=== PATIENT | female | born 1990 ===

== ENCOUNTER 2017-02-23 13:04 | Emergency (ER) | payer OTHER, MEDICAID ==
[2017-02-23 13:05] VITALS: BMI 25.2
[2017-02-23 13:17] VITALS: O2SAT 98
[2017-02-23 13:58] LABS: BASO % 0.6 % (0.0-2.0); EOS % 0.7 % (0.0-4.0); HEMATOCRIT 39.3 % (34.0-47.0); LYMPH # 1.8 K/uL (1.0-4.3); LYMPH % 33.6 % (20.0-40.0); MEAN CELL VOLUME 87.6 fL (81.0-99.0); MEAN CORPUSCULAR HEMOGLOBIN 28.4 pg (27.0-31.0); MEAN CORPUSCULAR HGB CONC 32.5 g/dL (33.0-37.0); MEAN PLATELET VOLUME 9.3 fL (7.2-11.7); MONO # 0.5 K/uL (0.0-0.8); MONO % 9.4 % (0.0-10.0); NRBC % 0.2 % (0.0-2.0); RED CELL DISTRIBUTION WIDTH 13.5 % (11.5-14.5); WHITE BLOOD COUNT 5.2 K/uL (4.8-10.8)
--- NOTE | 2017-02-23 14:08 | C.PDOC ---
History Of Present Illness 27 y/o female presents to ED with complaints of abdominal pain for 3 days. Patient states she had a tubal and was given Methotrexate on 01/31. Patient started having vaginal bleeding 1 week ago and was told she was having a miscarriage, 5 days ago Beta was checked and was 1000. Patient states currently she is having vaginal spotting and nausea but denies vomiting, back pain, dizziness or any other complaints at this time. LMP 12/17/16 Time Seen by Provider: 02/23/17 13:26 Chief Complaint (Nursing): Abdominal Pain History Per: Patient History/Exam Limitations: no limitations Onset/Duration Of Symptoms: Days Current Symptoms Are (Timing): Still Present Location Of Pain/Discomfort: Suprapubic Radiation Of Pain To:: None Quality Of Discomfort: Dull Associated Symptoms: Nausea. denies: Vomiting Past Medical History Reviewed: Historical Data, Nursing Documentation, Vital Signs Vital Signs: Last Vital Signs Temp 89.6 F L 02/23/17 15:47 Pulse 78 02/23/17 15:47 Resp 16 02/23/17 15:47 BP 124/71 02/23/17 15:47 Pulse Ox 98 02/23/17 15:47 - Medical History PMH: No Chronic Diseases Surgical History: No Surg Hx - [facility] Procedures INJECT/INFUSE ELECTROLYT (12/26/13) INJECT/INFUSE NEC (12/26/13) Family History: States: No Known Family Hx - Social History Hx Tobacco Use: Yes (socially) Hx Alcohol Use: Yes Hx Substance Use: No - Immunization History Hx Tetanus Toxoid Vaccination: No Hx Influenza Vaccination: Yes Hx Pneumococcal Vaccination: No Review Of Systems Constitutional: Negative for: Fever, Chills Gastrointestinal: Positive for: Nausea, Abdominal Pain. Negative for: Vomiting , Diarrhea Genitourinary: Positive for: Vaginal Bleeding. Negative for: Dysuria Musculoskeletal: Negative for: Back Pain Skin: Negative for: Rash Neurological: Negative for: Weakness, Numbness Physical Exam - Physical Exam Appears: Non-toxic, No Acute Distress Skin: Warm, Dry, No Rash Head: Atraumatic, Normacephalic Oral Mucosa: Moist Neck: Normal ROM, Supple Chest: Symmetrical Cardiovascular: Rhythm Regular Respiratory: Normal Breath Sounds, No Accessory Muscle Use, No Rales, No Rhonchi , No Wheezing Gastrointestinal/Abdominal: Soft, Tenderness (right side suprapubic), No Guarding, No Rebound Back: No CVA Tenderness Extremity: Bilateral: Atraumatic Neurological/Psych: Oriented x3, Normal Motor, Normal Sensation ED Course And Treatment - Laboratory Results Result Diagrams: 02/23/17 13:52 02/23/17 13:52 O2 Sat by Pulse Oximetry: 98 (RA) Pulse Ox Interpretation: Normal - CT Scan/US Pelvis/ Transvaginal Other Rad Studies (CT/US): Interpreted By Me, Read By Radiologist CT/US Interpretation: HISTORY: prior ectopic preg, c.o pain and bleeding. COMPARISON: None available. TECHNIQUE: Transabdominal and transvaginal technique was utilized in providing longitudinal and transverse projections of the pelvic contents. FINDINGS: UTERUS: Measures 9.4 x 5.7 x 6.4 cm. Uterus is mildly enlarged appearing anteverted with inhomogeneous myometrial echotexture. At the high fundus anteriorly, there is a 2.1 x 2.2 x 2.3 cm sub serosal myoma inhomogeneous in echotexture with limited posterior shadowing associated. At the mid anterior fundus there is a 2.4 x 2.4 x 2.4 cm mixed echogenicity lesion representing a intramural myoma which appears sub serosal and intramural without encroachment of the submucus space. At the high posterior fundus toward the right, the largest myoma is identified measuring 3.1 x 2.8 x 3.5 cm with relatively prominent posterior shadowing and occasional posterior acoustic enhancement bridging the submucous through sub serosal distance. Finally, a hypoechoic sub serosal myoma is identified at the mid to lower fundus measuring 2.1 x 1.8 x 2.5 cm. ENDOMETRIUM: Measures 4.4 mm in diameter. Monolaminar and otherwise appearing unremarkable. CERVIX: No cervical abnormality identified. RIGHT OVARY: Measures 3.0 x 2.0 x 2.7 cm. A complex lesion measuring 2.5 x 2.3 x 2.0 cm is isoechoic in the periphery with a small cystic core measuring 8.3 mm. No yolk sac or pole seen within this structure but this may correspond to the clinically known right ectopic gestation for which the patient was given methotrexate in the past week. No prior comparison available. Normal intra-ovarian arterial blood flow was captured on spectral Doppler analysis. LEFT OVARY: Measures 3.2 x 2.2 x 2.5 cm. No solid mass. Normal flow. A few tiny cysts suggest scattered follicles in the left ovary. FREE FLUID: No significant free fluid noted. OTHER FINDINGS: None. IMPRESSION: At 2.5 cm complex solid and cystic lesion is seen at the superior margins of the right ovary suspicious for ectopic gestation with no similar finding seen at the left adnexal compartment. The intracavity is unremarkable as well. Further clinical correlation is advised. No sonographic evidence to suggest ovarian torsion bilaterally. Multiple uterine fibroids as discussed above. Endometrium is otherwise unremarkable as well the cervix. Medical Decision Making Medical Decision Making: Impression: Ectopic , given methotrexate x1 dose Plan: Beta HCG, UA, US Progress: 1500 US shows a2.5 cm complex solid and cystic lesion is seen at the superior margins of the right ovary suspicious for ectopic gestation with no similar finding seen at the left adnexal compartment. The intracavity is unremarkable as well. Further clinical correlation is advised. No sonographic evidence to suggest ovarian torsion bilaterally. Attempt to contact Dr Araseli Costa and [facility] [id number] Spoke with hypoid gear tester Dr Costa and discussed case. she is familiar with patient and reports she was seen for exctopic , initial BHCG ws 7200, given Methotrexate and BHCG has been trending down, her most recent was 1678 on 02/18 and H/H was . Today BHCG is 192 and she agrees patient stable and steady for discharge. She can follow up in office 02/25 for repeat BHCG. Disposition Counseled Patient/Family Regarding: Diagnosis, Need For Followup, Rx Given - Disposition Referrals: Araseli Costa MD [Non-Staff] - Disposition: HOME/ ROUTINE Disposition Time: 15:31 Condition: STABLE Additional Instructions: Please follow up with your hypoid gear tester on Sunday 02/25 for repeat BHCG Take Tylenol 500mg or Ibuprofen 600mg as needed for pain Instructions: Ectopic (ED) Forms: [facility] (Upper Sorbian), Work Excuse - POA Present On Arrival: None - Clinical Impression Clinical Impression: Status post ectopic - PA / ASSOCIATE BUYER / Resident Statement MD/DO has reviewed & agrees with the documentation as recorded. - Scribe Statement The provider has reviewed the documentation as recorded by the Marie Aceves All medical record entries made by the Scribe were at my direction and personally dictated by me. I have reviewed the chart and agree that the record accurately reflects my personal performance of the history, physical exam, medical decision making, and the department course for this patient. I have also personally directed, reviewed, and agree with the discharge instructions and disposition.
[2017-02-23 14:15] LABS: RBC URINE 25 /hpf (0-3); URINE BILIRUBIN NEGATIVE (NEGATIVE); URINE BLOOD 3+ (NEGATIVE); URINE COLOR Yellow (YELLOW); URINE GLUCOSE (UA) NORMAL (Normal); URINE KETONE NEGATIVE (NEGATIVE); URINE LEUKOCYTE ESTERASE NEG Leu/uL (Negative); URINE PROTEIN NEGATIVE (NEGATIVE); URINE UROBILINOGEN NORMAL mg/dL (0.2-1.0); WBC URINE 3 /hpf (0-5)
[2017-02-23 14:16] LABS: CHLORIDE 104 mmol/L (98-107); SODIUM 135 mmol/L (132-148)
[2017-02-23 14:17] LABS: POTASSIUM 3.9 mmol/L (3.6-5.2)
[2017-02-23 14:19] LABS: ALKALINE PHOSPHATASE 50 U/L (38-126); ALT/SGPT 78 U/L (9-52); AST/SGOT 37 U/L (14-36); BILIRUBIN,TOTAL 0.6 mg/dL (0.2-1.3); BLOOD UREA NITROGEN 14 mg/dL (7-17); CARBON DIOXIDE 23 mmol/L (22-30); GFR AFRICAN-AMERICAN > 60; GLUCOSE,RANDOM 79 mg/dL (65-105); TOTAL PROTEIN 8.2 g/dL (6.3-8.3)
[2017-02-23 14:20] LABS: CALCIUM 9.4 mg/dl (8.6-10.4)
--- NOTE | 2017-02-23 15:09 | US ---
HISTORY: prior ectopic preg, c.o pain and bleeding COMPARISON: None available. TECHNIQUE: Transabdominal and transvaginal technique was utilized in providing longitudinal and transverse projections of the pelvic contents. FINDINGS: UTERUS: Measures 9.4 x 5.7 x 6.4 cm. Uterus is mildly enlarged appearing anteverted with inhomogeneous myometrial echotexture. At the high fundus anteriorly, there is a 2.1 x 2.2 x 2.3 cm sub serosal myoma inhomogeneous in echotexture with limited posterior shadowing associated. At the mid anterior fundus there is a 2.4 x 2.4 x 2.4 cm mixed echogenicity lesion representing a intramural myoma which appears sub serosal and intramural without encroachment of the submucus space. At the high posterior fundus toward the right, the largest myoma is identified measuring 3.1 x 2.8 x 3.5 cm with relatively prominent posterior shadowing and occasional posterior acoustic enhancement bridging the submucous through sub serosal distance. Finally, a hypoechoic sub serosal myoma is identified at the mid to lower fundus measuring 2.1 x 1.8 x 2.5 cm. ENDOMETRIUM: Measures 4.4 mm in diameter. Monolaminar and otherwise appearing unremarkable. CERVIX: No cervical abnormality identified. RIGHT OVARY: Measures 3.0 x 2.0 x 2.7 cm. A complex lesion measuring 2.5 x 2.3 x 2.0 cm is isoechoic in the periphery with a small cystic core measuring 8.3 mm. No yolk sac or pole seen within this structure but this may correspond to the clinically known right ectopic gestation for which the patient was given methotrexate in the past week. No prior comparison available. Normal intra-ovarian arterial blood flow was captured on spectral Doppler analysis. LEFT OVARY: Measures 3.2 x 2.2 x 2.5 cm. No solid mass. Normal flow. A few tiny cysts suggest scattered follicles in the left ovary. FREE FLUID: No significant free fluid noted. OTHER FINDINGS: None. IMPRESSION: At 2.5 cm complex solid and cystic lesion is seen at the superior margins of the right ovary suspicious for ectopic gestation with no similar finding seen at the left adnexal compartment. The intracavity is unremarkable as well. Further clinical correlation is advised. No sonographic evidence to suggest ovarian torsion bilaterally. Multiple uterine fibroids as discussed above. Endometrium is otherwise unremarkable as well the cervix.
[2017-02-23 15:48] VITALS: BP 124/71; PULSE 78; RESP 16; TEMP 89.6
== END 2017-02-23 15:48 | disposition home or self-care (01) ==
LOC: C.ER 13:04
DX: O00.90 Unspecified ectopic pregnancy without intrauterine pregnancy (principal)
CPT/HCPCS: 76830; 76856; 80053; 81001; 84702; 84703; 85025; 96374; 99284; J2405

== ENCOUNTER 2017-04-16 16:28 | Emergency (ER) | payer OTHER, MEDICAID ==
[2017-04-16 16:29] VITALS: BMI 25.2
[2017-04-16 16:53] VITALS: BP 121/76; PULSE 70; RESP 18; TEMP 97.8; O2SAT 100
[2017-04-16] MEDS ORDERED: Tetanus/Diphtheria Toxoids 0.5 ml Syringe IM ONE ×2 (17:13→19:25)
[2017-04-16] MEDS ORDERED: Emtricitabine-Tenofovir 200 mg-300 mg Tab PO STA ×2 (17:13→19:33)
[2017-04-16 17:45] LABS: BASO % 0.5 % (0.0-2.0); EOS % 0.5 % (0.0-4.0); HEMATOCRIT 37.4 % (34.0-47.0); LYMPH # 2.2 K/uL (1.0-4.3); LYMPH % 33.8 % (20.0-40.0); MEAN CELL VOLUME 87.1 fL (81.0-99.0); MEAN CORPUSCULAR HEMOGLOBIN 29.1 pg (27.0-31.0); MEAN CORPUSCULAR HGB CONC 33.4 g/dL (33.0-37.0); MEAN PLATELET VOLUME 9.5 fL (7.2-11.7); MONO # 0.7 K/uL (0.0-0.8); MONO % 10.2 % (0.0-10.0); NRBC % 0.1 % (0.0-2.0); RED CELL DISTRIBUTION WIDTH 13.1 % (11.5-14.5); WHITE BLOOD COUNT 6.5 K/uL (4.8-10.8)
[2017-04-16 17:49] LABS: RBC URINE 2 /hpf (0-3); URINE BILIRUBIN NEGATIVE (NEGATIVE); URINE BLOOD NEGATIVE (NEGATIVE); URINE COLOR Yellow (YELLOW); URINE GLUCOSE (UA) NORMAL (Normal); URINE KETONE NEGATIVE (NEGATIVE); URINE LEUKOCYTE ESTERASE NEG Leu/uL (Negative); URINE PROTEIN NEGATIVE (NEGATIVE); URINE UROBILINOGEN NORMAL mg/dL (0.2-1.0); WBC URINE < 1 /hpf (0-5)
[2017-04-16 17:54] LABS: ALB/GLOB RATIO 1.2 (1.0-2.1); ALKALINE PHOSPHATASE 49 U/L (38-126); ALT/SGPT 31 U/L (9-52); AMYLASE 80 U/L (30-110); AST/SGOT 34 U/L (14-36); BILIRUBIN,TOTAL 0.5 mg/dL (0.2-1.3); BLOOD UREA NITROGEN 14 mg/dL (7-17); CARBON DIOXIDE 26 mmol/L (22-30); CHLORIDE 102 mmol/L (98-107); GFR AFRICAN-AMERICAN > 60; GLUCOSE,RANDOM 89 mg/dL (65-105); SODIUM 134 mmol/L (132-148); TOTAL PROTEIN 7.4 g/dL (6.3-8.3)
--- NOTE | 2017-04-16 19:06 | C.PDOC ---
History Of Present Illness Cristin Trent is a 27 year old female, with no past medical history, who presents to the emergency department complaining of needle stick while taking blood test from patient who is known to be HIV positive. Patient is an employee and states she was using a butterfly needle 20 g hollow needle. She rinsed with water right after the incident. No further medical complaints. PMD: None provided. Time Seen by Provider: 04/16/17 16:32 Chief Complaint (Nursing): Needle Stick History Per: Patient History/Exam Limitations: no limitations Onset/Duration Of Symptoms: Hrs Current Symptoms Are (Timing): Still Present Pain Scale Rating Of: 0 Past Medical History Reviewed: Historical Data, Nursing Documentation, Vital Signs Vital Signs: Last Vital Signs Temp 97.8 F 04/16/17 16:44 Pulse 70 04/16/17 16:44 Resp 18 04/16/17 16:44 BP 121/76 04/16/17 16:44 Pulse Ox 100 04/16/17 20:08 - Medical History PMH: No Chronic Diseases Denies: Depression Surgical History: No Surg Hx - [facility] Procedures INJECT/INFUSE ELECTROLYT (12/26/13) INJECT/INFUSE NEC (12/26/13) Family History: States: Unknown Family Hx - Social History Hx Tobacco Use: Yes (socially) Hx Alcohol Use: Yes Hx Substance Use: No - Immunization History Hx Tetanus Toxoid Vaccination: No Hx Influenza Vaccination: Yes Hx Pneumococcal Vaccination: No Review Of Systems Except As Marked, All Systems Reviewed And Found Negative. Skin: Positive for: Other (marked needle stick on right index finger) Physical Exam - Physical Exam Appears: Well, No Acute Distress Skin: Normal Color, Warm, Dry Head: Atraumatic, Normacephalic Eye(s): bilateral: Normal Inspection, EOMI Neck: Normal, Normal ROM, Supple Extremity: Other (marked needle stick on the right index finger proximal phalanx palmar surface, no active bleeding) Neurological/Psych: Oriented x3, Normal Speech ED Course And Treatment - Laboratory Results Result Diagrams: 04/16/17 17:37 04/16/17 17:37 O2 Sat by Pulse Oximetry: 100 (RA) Pulse Ox Interpretation: Normal Medical Decision Making Medical Decision Making: Initial Impression: needle stick Initial Plan: --Amylase --Comp Metabolic Panel --Hepatitis B Surface AB --Hepatitis Panel (acute) --HIV 1&2 Antibody --CBC w/ differential --Tetanus 0.5 ml IM --Tivicay 50 mg PO --Truvuda 200 mg-300 mg 1 tab PO --Rapid Plasma Reagin --HCG, Qualitative urine --Urinalysis --reevaluation Disposition - Disposition Disposition: HOME/ ROUTINE Disposition Time: 20:07 Condition: STABLE Additional Instructions: Follow up in [facility] on 04/19[facility]17. Return to ED if feel worse. Prescriptions: Dolutegravir Sodium [Tivicay] 50 mg PO DAILY 3 Days #3 tab Dolutegravir Sodium [Tivicay] 50 mg PO DAILY 24 Days #24 tab Emtricitabine/Tenofovir (Tdf) [Truvada 200 mg-300 mg Tablet] 1 each PO DAILY 3 Days #3 tablet Emtricitabine/Tenofovir (Tdf) [Truvada 200 mg-300 mg Tablet] 1 each PO DAILY 24 Days #24 tablet Ondansetron ODT [Zofran ODT] 4 mg PO .Q4-6H PRN #20 odt PRN Reason: Nausea/Vomiting Instructions: Needle Stick Injuries (ED) Forms: [employer] (Mohawk) - Clinical Impression Clinical Impression: Needle stick injury - Scribe Statement Darrel Gardner All medical record entries made by the Scribe were at my direction and personally dictated by me. I have reviewed the chart and agree that the record accurately reflects my personal performance of the history, physical exam, medical decision making, and the department course for this patient. I have also personally directed, reviewed, and agree with the discharge instructions and disposition.
[2017-04-17] MEDS ORDERED: Emtricitabine-Tenofovir 200 mg-300 mg Tab PO SCH (10:00)
== END 2017-04-16 20:19 | disposition home or self-care (01) ==
LOC: C.ER 16:28
DX: S61.230A Puncture wound without foreign body of right index finger without damage to nail, initial encounter (principal); W46.0XXA Contact with hypodermic needle, initial encounter; Y92.238 Other place in hospital as the place of occurrence of the external cause; Y99.0 Civilian activity done for income or pay; Z23 Encounter for immunization

== ENCOUNTER 2017-06-03 14:16 | Emergency (ER) | payer MEDICAID, OTHER ==
[2017-06-03 15:07] VITALS: BMI 25.9
[2017-06-03 15:10] VITALS: BP 120/80; PULSE 65; RESP 18; TEMP 98; O2SAT 98
[2017-06-03 16:11] LABS: HEPATITIS B SURFACE AG Negative (NEGATIVE)
[2017-06-03 16:17] LABS: HEPATITIS A IGM NEGATIVE (NEGATIVE); HEPATITIS B CORE AB NEGATIVE (NEGATIVE)
[2017-06-03 16:28] LABS: HEPATITIS C ANTIBODY NEGATIVE (NEGATIVE)
--- NOTE | 2017-06-03 17:21 | C.PDOC ---
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 Patient was evaluated by the employee health department following the incident and was recommended to undergo repeat bloodwork. She denies any other complaints at this time. Time Seen by Provider: 06/03/17 15:15 Chief Complaint (Nursing): Medical Clearance History Per: Patient History/Exam Limitations: no limitations Current Symptoms Are (Timing): Still Present Additional History Per: Patient Past Medical History Reviewed: Historical Data, Nursing Documentation, Vital Signs Vital Signs: Last Vital Signs Temp 98 F 06/03/17 15:07 Pulse 65 06/03/17 15:07 Resp 18 06/03/17 15:07 BP 120/80 06/03/17 15:07 Pulse Ox 98 06/03/17 18:14 - Medical History PMH: No Chronic Diseases Denies: Depression Surgical History: No Surg Hx - [facility] Procedures INJECT/INFUSE ELECTROLYT (12/26/13) INJECT/INFUSE NEC (12/26/13) Family History: States: Unknown Family Hx - Social History Hx Tobacco Use: Yes (socially) Hx Alcohol Use: No Hx Substance Use: No - Immunization History Hx Tetanus Toxoid Vaccination: Yes Hx Influenza Vaccination: Yes Hx Pneumococcal Vaccination: No Review Of Systems Constitutional: Positive for: Other (repeat bloodwork s/p needle stick ). Negative for: Fever, Chills Cardiovascular: Negative for: Chest Pain Respiratory: Negative for: Cough, Shortness of Breath Gastrointestinal: Negative for: Nausea, Vomiting Skin: Negative for: Rash, Lesions, Jaundice, Bruising Neurological: Negative for: Weakness, Numbness Physical Exam - Physical Exam Appears: Non-toxic, No Acute Distress Skin: Normal Color, Warm, Dry Head: Atraumatic, Normacephalic Eye(s): bilateral: Normal Inspection Oral Mucosa: Moist Neck: Supple Chest: Symmetrical, No Deformity, No Tenderness Cardiovascular: Rhythm Regular, No Murmur Respiratory: Normal Breath Sounds, No Rales, No Rhonchi, No Wheezing Extremity: Normal ROM, Capillary Refill (less than 2 seconds) Neurological/Psych: Oriented x3, Normal Speech, Normal Cognition Gait: Steady ED Course And Treatment O2 Sat by Pulse Oximetry: 98 (on RA) Pulse Ox Interpretation: Normal Progress Note: Bloodwork ordered and reviewed. Pt advised to F/u with [facility] for further evaluation and treatment as need. Disposition Counseled Patient/Family Regarding: Studies Performed, Diagnosis - Disposition Disposition: HOME/ ROUTINE Disposition Time: 15:55 Condition: STABLE Additional Instructions: Follow up with Employee health for further evaluation and treatment return if any new changes. Instructions: Needle Stick Injuries (ED) Forms: [employer] (Kyrgyz) - Clinical Impression Clinical Impression: Medical assessment, Needle stick injury - PA / COIN BOX INSPECTOR / Resident Statement MD/DO has reviewed & agrees with the documentation as recorded. - Scribe Statement The provider has reviewed the documentation as recorded by the Scribe (Dayna Morales) All medical record entries made by the Scribe were at my direction and personally dictated by me. I have reviewed the chart and agree that the record accurately reflects my personal performance of the history, physical exam, medical decision making, and the department course for this patient. I have also personally directed, reviewed, and agree with the discharge instructions and disposition.
== END 2017-06-03 17:20 | disposition home or self-care (01) ==
LOC: C.ER 14:16
DX: T14.90XA Injury, unspecified, initial encounter (principal); W46.0XXA Contact with hypodermic needle, initial encounter; Y99.0 Civilian activity done for income or pay; Z87.891 Personal history of nicotine dependence

== ENCOUNTER 2017-06-06 22:31 | Emergency (ER) | payer OTHER ==
[2017-06-06 22:31] VITALS: BMI 25.9
[2017-06-06] MEDS ORDERED: Sodium Chloride 0.9% 1,000 ML IV ONE (22:58)
--- NOTE | 2017-06-06 22:58 | C.PDOC ---
History Of Present Illness Patient presents to the ER with a sudden onset of right flank pain that began while at work, associated with some nausea. Patient reports the pain to sharp/ stabbing and radiating to the groin. Denies fever, chills, or vomiting. Time Seen by Provider: 06/06/17 22:58 Chief Complaint (Nursing): Abdominal Pain History Per: Patient History/Exam Limitations: no limitations Onset/Duration Of Symptoms: Hrs, Sudden Onset Current Symptoms Are (Timing): Still Present Severity: Moderate Pain Scale Rating Of: 4 Location Of Pain/Discomfort: Other (Right flank pain) Radiation Of Pain To:: Other (groin) Quality Of Discomfort: Sharp, Stabbing Associated Symptoms: Nausea. denies: Fever, Chills, Vomiting Exacerbating Factors: None Alleviating Factors: None Recent travel outside of the [place]: No Past Medical History Reviewed: Historical Data, Nursing Documentation, Vital Signs Vital Signs: Last Vital Signs Temp 98.4 F 06/07/17 03:30 Pulse 82 06/07/17 03:30 Resp 18 06/07/17 03:30 BP 114/72 06/07/17 03:30 Pulse Ox 100 06/07/17 03:30 - [facility] Procedures INJECT/INFUSE ELECTROLYT (12/26/13) INJECT/INFUSE NEC (12/26/13) Family History: States: Unknown Family Hx - Social History Hx Tobacco Use: Yes (socially) Hx Alcohol Use: No Hx Substance Use: No - Immunization History Hx Tetanus Toxoid Vaccination: Yes Hx Influenza Vaccination: Yes Hx Pneumococcal Vaccination: No Review Of Systems Constitutional: Negative for: Fever, Chills Gastrointestinal: Positive for: Nausea. Negative for: Vomiting Musculoskeletal: Positive for: Back Pain (Right flank) Physical Exam - Physical Exam Appears: Non-toxic Skin: Warm, Dry Head: Normacephalic Oral Mucosa: Moist Chest: Symmetrical, No Tenderness Cardiovascular: Rhythm Regular Respiratory: No Rales, No Rhonchi, No Wheezing Gastrointestinal/Abdominal: Soft, No Tenderness Back: Other (Right flank tenderness) Neurological/Psych: Oriented x3 ED Course And Treatment - Laboratory Results Result Diagrams: 06/06/17 23:49 06/06/17 23:49 O2 Sat by Pulse Oximetry: 99 (Room air) Pulse Ox Interpretation: Normal Progress Note: Blood work, urinalysis, and pelvis/transvaginal US ordered. Morphine, pepcid, zofran, and IV fluids administered. Disposition Counseled Patient/Family Regarding: Studies Performed, Diagnosis, Need For Followup - Disposition Referrals: 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 Will need to repeat HCG levels in 5-7 days Instructions: Abdominal Pain in (ED) Forms: [employer] Connect ([place] Zealander), Work Excuse - Clinical Impression Clinical Impression: Abdominal pain during , Ovarian cyst - PA / VISITOR INFORMATION ASSISTANT / Resident Statement MD/DO has reviewed & agrees with the documentation as recorded. - Scribe Statement The provider has reviewed the documentation as recorded by the Scriblizeth Parsons All medical record entries made by the Kimberlyiblizeth were at my direction and personally dictated by me. I have reviewed the chart and agree that the record accurately reflects my personal performance of the history, physical exam, medical decision making, and the department course for this patient. I have also personally directed, reviewed, and agree with the discharge instructions and disposition.
[2017-06-06] MEDS ORDERED: Morphine 4 MG/ML VIAL ONE (23:09)
[2017-06-06] MEDS ORDERED: Sodium Chloride 0.9% 1,000 ML ONE (23:10)
[2017-06-06 23:54] LABS: BASO % 0.4 % (0.0-2.0); EOS % 0.2 % (0.0-4.0); HEMOGLOBIN 12.9 g/dL (11.0-16.0); LYMPH # 2.5 K/uL (1.0-4.3); LYMPH % 40.7 % (20.0-40.0); MEAN CELL VOLUME 87.1 fL (81.0-99.0); MEAN CORPUSCULAR HGB CONC 33.3 g/dL (33.0-37.0); MEAN PLATELET VOLUME 10.4 fL (7.2-11.7); MONO # 0.5 K/uL (0.0-0.8); MONO % 8.3 % (0.0-10.0); NEUT # 3.2 K/uL (1.8-7.0); NEUT % 50.4 % (50.0-75.0); NRBC % 0.1 % (0.0-2.0); RBC 4.43 Mil/uL (3.80-5.20); RED CELL DISTRIBUTION WIDTH 13.7 % (11.5-14.5); WHITE BLOOD COUNT 6.3 K/uL (4.8-10.8)
[2017-06-06 23:59] LABS: HCG,QUALITATIVE URINE POSITIVE (NEGATIVE)
[2017-06-07] LABS: SQUAMOUS EPITHIAL 3 /hpf (0-5); URINE BILIRUBIN NEGATIVE (NEGATIVE); URINE BLOOD NEGATIVE (NEGATIVE); URINE CLARITY Hazy (Clear); URINE COLOR Straw (YELLOW); URINE GLUCOSE (UA) NORMAL (Normal); URINE LEUKOCYTE ESTERASE NEG Leu/uL (Negative); URINE NITRATE NEGATIVE (NEGATIVE); URINE PROTEIN NEGATIVE (NEGATIVE); URINE UROBILINOGEN NORMAL mg/dL (0.2-1.0)
[2017-06-07 00:07] LABS: ALB/GLOB RATIO 1.2 (1.0-2.1); ALBUMIN 4.3 g/dL (3.5-5.0); ALT/SGPT 24 U/L (9-52); AST/SGOT 26 U/L (14-36); BLOOD UREA NITROGEN 14 mg/dL (7-17); CALCIUM 10.7 mg/dl (8.6-10.4); GFR AFRICAN-AMERICAN > 60; GFR NON-AFRICAN AMERICAN > 60; LIPASE 56 U/L (23-300)
[2017-06-07] MEDS ORDERED: Sodium Chloride 0.9% 1,000 ML IV ONE (00:10)
[2017-06-07] MEDS ORDERED: Morphine 4 MG/ML VIAL ONE (00:21)
[2017-06-07 03:49] VITALS: RESP 18
--- NOTE | 2017-06-07 04:00 | US ---
EXAM: US First Trimester, Transabdominal CLINICAL HISTORY: 27 years old, female; Pain; complicated by abdominal or pelvic pain; Lower; First trimester; Gestational age or lmp: Iui on 06/04/17; ; Patient HX: Urine hcg positive; Additional info: R flank pain, +preg TECHNIQUE: Real-time transabdominal obstetrical ultrasound of the maternal pelvis and a first trimester with image documentation. COMPARISON: No relevant prior studies available. FINDINGS: Gestation: No intrauterine gestational sac. Uterus/cervix: Few uterine masses, largest measuring 2.7 x 2.1 x 3.1 cm. Endometrium: 1.2 cm in thickness. Closed cervix. Ovaries: RIGHT ovary: 5.7 x 4.8 x 5.0 cm. LEFT ovary: 2.2 x 1.7 x 2.0 cm hypoechoic lesion with internal echoes. No adnexal masses. Free fluid: Small free fluid within pelvis. IMPRESSION: 1. No intrauterine gestation. DDX: Early IUP, missed , ectopic . 2. Probable complex LEFT ovarian cyst. 3. Enlarged RIGHT ovary. 4. Probable fibroid uterus. EXAM: US , Transvaginal CLINICAL HISTORY: 27 years old, female; Pain; complicated by abdominal or pelvic pain; Lower; First trimester; Gestational age or lmp: Iui on 06/04/17; ; Patient HX: Urine hcg positive; Additional info: R flank pain, +preg TECHNIQUE: Real-time transvaginal obstetrical ultrasound of the maternal pelvis and a first trimester with image documentation. Transvaginal imaging was used for better evaluation of the fetus and adnexa. COMPARISON: No relevant prior studies available. FINDINGS: Gestation: No intrauterine gestational sac. Uterus/cervix: Few uterine masses, largest measuring 2.7 x 2.1 x 3.1 cm. Endometrium: 1.2 cm in thickness. Closed cervix. Ovaries: RIGHT ovary: 5.7 x 4.8 x 5.0 cm. LEFT ovary: 2.2 x 1.7 x 2.0 cm hypoechoic lesion with internal echoes. No adnexal masses. Free fluid: Small free fluid within pelvis.
[2017-06-07 06:18] VITALS: BP 104/68; PULSE 81; TEMP 98.1; O2SAT 98
== END 2017-06-07 06:30 | disposition home or self-care (01) ==
LOC: C.ER 22:31 → SUPCPDRO 22:31 → C.ER 06-07 06:30
DX: O34.81 Maternal care for other abnormalities of pelvic organs, first trimester (principal); N83.209 Unspecified ovarian cyst, unspecified side; O26.891 Other specified pregnancy related conditions, first trimester; R10.9 Unspecified abdominal pain; Z3A.00 Weeks of gestation of pregnancy not specified
CPT/HCPCS: 76830; 76856; 80053; 81001; 83690; 84702; 84703; 85025; 96361; 96374; 96375; 96376; 99285; J2270; J2405; J7040

== ENCOUNTER 2017-08-03 19:45 | Emergency (ER) | payer MEDICAID, OTHER ==
[2017-08-03 19:45] VITALS: BMI 25.9
[2017-08-03 19:54] VITALS: BP 119/73; PULSE 95; RESP 16; TEMP 98.4; O2SAT 99
--- NOTE | 2017-08-03 20:04 | C.PDOC ---
History Of Present Illness 27 year old female presents to ED with complaints of sore throat and associated fever since yesterday. Denies cough, chest pain, difficulty tolerating PO, headache, or neck pain. Time Seen by Provider: 08/03/17 19:58 Chief Complaint (Nursing): ENT Problem History Per: Patient History/Exam Limitations: None Onset/Duration Of Symptoms: Days Current Symptoms Are (Timing): Still Present Quality (Mouth/Throat): Tenderness Past Medical History Reviewed: Historical Data, Nursing Documentation, Vital Signs Vital Signs: Last Vital Signs Temp 98.4 F 08/03/17 19:50 Pulse 95 H 08/03/17 19:50 Resp 16 08/03/17 19:50 BP 119/73 08/03/17 19:50 Pulse Ox 99 08/07/17 13:02 - Medical History PMH: Denies: Depression - [facility] Procedures INJECT/INFUSE ELECTROLYT (12/26/13) INJECT/INFUSE NEC (12/26/13) Family History: States: Unknown Family Hx - Social History Hx Tobacco Use: Yes (socially) Hx Alcohol Use: Yes Hx Substance Use: No - Immunization History Hx Tetanus Toxoid Vaccination: Yes Hx Influenza Vaccination: Yes Hx Pneumococcal Vaccination: No Review Of Systems Except As Marked, All Systems Reviewed And Found Negative. Constitutional: Positive for: Fever ENT: Positive for: Throat Pain. Negative for: Ear Pain, Nose Discharge, Nose Congestion Cardiovascular: Negative for: Chest Pain Respiratory: Negative for: Cough, Shortness of Breath Physical Exam - Physical Exam Appears: Well, Non-toxic, No Acute Distress Skin: Normal Color, Warm, Dry Head: Atraumatic, Normacephalic Eye(s): bilateral: Normal Inspection, EOMI Ear(s): Bilateral: Normal Nose: Normal Oral Mucosa: Moist Tongue: Normal Appearing Lips: Normal Appearing Throat: Erythema, Exudate, No Drooling Neck: Normal ROM, Supple Lymphatic: Normal Exam Chest: Symmetrical Cardiovascular: Rhythm Regular Respiratory: Normal Breath Sounds, No Rales, No Rhonchi, No Wheezing Extremity: Normal ROM Neurological/Psych: Oriented x3, Normal Speech ED Course And Treatment O2 Sat by Pulse Oximetry: 99 (RA) Pulse Ox Interpretation: Normal Progress Note: Pt was given Amoxicillin, and Motrin. Patient is being discharged home, with instructions to follow up with PMD in 1-2 days further evaluation. Return to ED if symptoms persist or worsen. Disposition - Disposition Disposition: HOME/ ROUTINE Disposition Time: 20:03 Condition: STABLE Additional Instructions: Follow up with primary medical doctor in 1-3 days without fail for further evaluation. Take medications as prescribed. Return to the emergency department at any time if symptoms persist or worsen. Prescriptions: Acetaminophen [Tylenol 325mg tab] 650 mg PO Q4 PRN #20 tab PRN Reason: Pain, Mild (1-3) Amoxicillin 875 mg PO BID #14 tablet Instructions: Sore Throat, Adult (DC) Forms: [employer] (Chadian) - Clinical Impression Clinical Impression: Tonsillitis - PA / [employer] / Resident Statement MD/DO has reviewed & agrees with the documentation as recorded. - Scribe Statement The provider has reviewed the documentation as recorded by the Kimberlyiblizeth Morales All medical record entries made by the Kimberlyiblizeth were at my direction and personally dictated by me. I have reviewed the chart and agree that the record accurately reflects my personal performance of the history, physical exam, medical decision making, and the department course for this patient. I have also personally directed, reviewed, and agree with the discharge instructions and disposition.
[2017-08-03] MEDS ORDERED: Amoxicillin-Clav 500-125 mg Tab PO ONE (20:07)
== END 2017-08-03 20:15 | disposition home or self-care (01) ==
LOC: C.ER 19:45
DX: J03.90 Acute tonsillitis, unspecified (principal); Z87.891 Personal history of nicotine dependence

== ENCOUNTER 2017-11-10 14:19 | Emergency (ER) | payer MEDICAID, OTHER ==
[2017-11-10 14:20] VITALS: BMI 25.9
[2017-11-10 14:36] VITALS: BP 112/77; PULSE 71; RESP 16; TEMP 99; O2SAT 99
[2017-11-10] MEDS ORDERED: Fluorescein 1 mg Ophthalmic Strip OU ONE (14:49)
--- NOTE | 2017-11-10 14:51 | C.PDOC ---
History Of Present Illness 27 yo female c/o right eye "dry" and "theres a white dot" since yesterday. Denies trauma, discharge, change in vision, diplopia, headache, FB sensation, or n/v. Notes she wears contacts, new pair started three days ago. Time Seen by Provider: 11/10/17 14:44 Chief Complaint (Nursing): Eye Problem History Per: Patient History/Exam Limitations: no limitations Onset/Duration Of Symptoms: Days (yesterday) Current Symptoms Are (Timing): Still Present Past Medical History Vital Signs: Last Vital Signs Temp 99.0 F 11/10/17 14:32 Pulse 71 11/10/17 14:32 Resp 16 11/10/17 14:32 BP 112/77 11/10/17 14:32 Pulse Ox 99 11/10/17 14:51 - Medical History PMH: Denies: Depression - [facility] Procedures INJECT/INFUSE ELECTROLYT (12/26/13) INJECT/INFUSE NEC (12/26/13) Family History: States: Unknown Family Hx - Social History Hx Tobacco Use: Yes (socially) Hx Alcohol Use: Yes Hx Substance Use: No - Immunization History Hx Tetanus Toxoid Vaccination: Yes Hx Influenza Vaccination: Yes Hx Pneumococcal Vaccination: No Review Of Systems Except As Marked, All Systems Reviewed And Found Negative. Eyes: Positive for: Pain, Redness (pt notes from rubbing it) Physical Exam - Physical Exam Appears: Well, Non-toxic, No Acute Distress Skin: Normal Color, Warm, Dry Head: Atraumatic, Normacephalic Eye(s): bilateral: PERRL, EOMI, right: Other ((+) white spot noted at 1 oclock) Nose: Normal Oral Mucosa: Moist Throat: Normal Neck: Normal, Normal ROM, Supple Chest: Symmetrical Cardiovascular: Rhythm Regular Respiratory: Normal Breath Sounds, No Accessory Muscle Use Back: Normal Inspection Extremity: Normal ROM Neurological/Psych: Oriented x3, Normal Speech ED Course And Treatment O2 Sat by Pulse Oximetry: 99 Progress Note: (+) fluorosceine uptake. Pt was instructed to remove contacts and do not put back in until f/u with eye doctor. Instructed to follow up with eye doctor after discharge. Disposition - Disposition Referrals: Otilio Campbell [Staff Provider] - Disposition: HOME/ ROUTINE Disposition Time: 14:49 Condition: STABLE Additional Instructions: Follow up with your eye doctor in 1-2 days. Do not out your contacts. Prescriptions: Ciprofloxacin 0.3% [Ciloxan 0.3% Ophth SOLN] 2 drop OD Q4 #1 bottle Instructions: Corneal Ulcer (DC) Forms: [employer] (Romanian) - Clinical Impression Clinical Impression: Corneal ulcer
[2017-11-10] MEDS ORDERED: Fluorescein 1 mg Ophthalmic Strip ONE (15:00)
== END 2017-11-10 15:12 | disposition home or self-care (01) ==
LOC: C.ER 14:19
DX: H16.001 Unspecified corneal ulcer, right eye (principal)